=== PATIENT | female | born 1945 | race Caucasian/White ===

== ENCOUNTER 2018-02-26 11:43 | Inpatient (IN) | payer MEDICARE, OTHER ==
[2018-02-26] MEDS ORDERED: NS 0.9% 1000 ML* 2,000 ML IV ONE (11:59)
--- NOTE | 2018-02-26 12:07 | ED ---
Neurological HPI - HPI Summary HPI Summary: Time seen by provider: [12:00] The patient is a 72 y/o F presenting to [facility] with a chief complaint of confusion and difficulty with communication starting this morning at 10:00. Per daughter, the patient was normal last night, although she did have a sudden onset cold with a productive cough and chest congestion. This morning, the pt's daughter called her and the pt was unable to form thoughts, but she wasn't slurring her speech. The daughter called EMS, who arrived to the pt's home, where she lives with her , but EMS found that the patient was communicating correctly and did not have any significant neurological defects present at that time. She additionally has a fever of 103F and dizziness. She denies numbness and tingling. She has hx of Afib, which she takes Eloquis for. - History of Current Complaint Chief Complaint: EDAltMentalStatus Stated Complaint: SLURRING OF SPEECH,DIZZY, HARD TIME WITH MEMORY Time Seen by Provider: 02/26/18 11:55 Hx Obtained From: Patient Onset/Duration: Sudden Onset, Started minutes ago - this morning at 10:00, Resolved Timing: Sudden Onset Onset Severity: Moderate Current Severity: Mild Pain Scale Used: 0-10 Numeric Character: Dizzy Aggravating: Nothing Alleviating: Nothing Associated Signs and Symptoms: Positive: Confusion, Dizziness, Impaired Speech - difficulty with communication but not slurred speech. Negative: Numbness - or tingling - Allergy/Home Medications Allergies/Adverse Reactions: Allergies Allergy/AdvReac Type Severity Reaction Status Date / Time codeine Allergy Severe Palpitation Verified 02/26/18 14:07 s metoprolol Allergy Intermediate Anxiety Verified 02/26/18 14:07 Penicillins Allergy Intermediate Rash Verified 02/26/18 14:07 amlodipine Allergy Mild Coughing Verified 02/26/18 14:07 ramipril Allergy Mild Coughing Verified 02/26/18 14:07 [id number]-Swg-Ojv Reductase Allergy Mild Coughing Verified 02/26/18 14:07 Inhibitor GILDA Inhibitors Allergy Unknown Unknown Verified 02/26/18 14:07 Reaction Details azithromycin Allergy Unknown Unknown Verified 02/26/18 14:07 Reaction Details Home Medications: Home Medications Cholecalciferol (Vitamin D3) [Vitamin D3] 2,000 unit PO DAILY 02/26/18 [History Confirmed 02/26/18] Cyanocobalamin (Vitamin B-12) [Vitamin B-12] 500 mcg SL DAILY 02/26/18 [History Confirmed 02/26/18] Gabapentin [Neurontin] 100 mg PO BEDTIME 02/26/18 [History Confirmed 02/26/18] Tramadol HCl/Acetaminophen [Ultracet] 1 tab PO SEE INSTRUCTIONS PRN 02/26/18 [ History Confirmed 02/26/18] PMH/Surg Hx/FS Hx/Imm Hx Endocrine/Hematology History: Reports: Hx Anticoagulant Therapy - Eliquist 5 mg q daily, Hx Thyroid Disease - IN THE PAST-NO MEDS NOW Cardiovascular History: Reports: Hx Coronary Artery Disease - ON MED, Hx Hypercholesterolemia, Hx Hypertension - ON MED, Other Cardiovascular Problems/ Disorders - ATRIAL FIB-DR PARRISH Respiratory History: Reports: Hx Asthma - EXERCISE INDUCED, Hx Sleep Apnea, Other Respiratory Problems/Disorders - PNEUMONIA IN THE PAST GI History: Reports: Hx Hiatal Hernia - S/P SURGERY, Hx Ulcer - IN THE PAST Musculoskeletal History: Reports: Hx Arthritis, Hx Fibromyalgia, Hx Orthopedic Injury - (left) shoulder tendonitis Denies: Hx Osteoporosis Sensory History: Reports: Hx Cataracts, Hx Contacts or Glasses - GLASSES Denies: Hx Hearing Aid Opthamlomology History: Reports: Hx Cataracts, Hx Contacts or Glasses - GLASSES Neurological History: Reports: Hx Nerve Disease - FIBROMYALGIA, Other Neuro Impairments/Disorders - RESTLESS LEG SYNDROME - Cancer History Hx Chemotherapy: No Hx Radiation Therapy: No - Surgical History Surgery Procedure, Year, and Place: TONSILLECTOMY. 2 C-SECTIONS. HIATAL HERNIA [id number]. 2 HEART ABLASIONS-2003, 2007 [facility] Hx Anesthesia Reactions: No Infectious Disease History: Reports: Hx Shingles - Family History Known Family History: Positive: Hypertension - Social History Alcohol Use: None Substance Use Type: Reports: None Smoking Status (MU): Former Smoker Type: Cigarettes Amount Used/How Often: 1 PPD Length of Time of Smoking/Using Tobacco: 15 YEARS Have You Smoked in the Last Year: No Review of Systems Positive: Fever - 103F Positive: Cough - productive, Other - chest congestion Neurological: Other - confusion, difficulty with communication, dizziness Negative: Numbness - tingling, Slurred Speech All Other Systems Reviewed And Are Negative: Yes Physical Exam - Summary Physical Exam Summary: Appearance: The patient is well-nourished in no acute distress and in no acute pain. Skin: The skin is hot to touch and dry and skin color reflects adequate perfusion. HEENT: The head is normocephalic and atraumatic. The pupils are equal and reactive. The conjunctivae are clear and without drainage. Nares are patent and without drainage. Mouth reveals moist mucous membranes and the throat is without erythema and exudate. The external ears are intact. The ear canals are patent and without drainage. The tympanic membranes are intact. Neck: The neck is supple with full range of motion and non-tender. There are no carotid bruits. There is no neck vein distension. Respiratory: Chest is non-tender. Lungs present a wet cough and breath sounds are symmetrical and equal. Cardiovascular: Heart is tachycardic. There is no murmur or rub auscultated. There is no peripheral edema and pulses are symmetrical and equal. Abdomen: The abdomen is soft and non-tender. There are normal bowel sounds heard in all four quadrants and there is no organomegaly palpated. Musculoskeletal: There is no back tenderness noted. Extremities are non-tender with full range of motion. There is good capillary refill. There is no peripheral edema or calf tenderness elicited. Neurological: Patient is alert and oriented to person, place and time. The patient has symmetrical motor strength in all four extremities. Cranial nerves are grossly intact. Deep tendon reflexes are symmetrical and equal in all four extremities. GCS: 15. NIH: 0. Psychiatric: The patient has an appropriate affect and does not exhibit any anxiety or depression. Triage Information Reviewed: Yes Vital Signs Reviewed: Yes - [place] Coma Scale Best Eye Response: 4 - Spontaneous Best Motor Response: 6 - Obeys Commands Best Verbal Response: 5 - Oriented Coma Scale Total: 15 Diagnostics - Laboratory Result Diagrams: 02/26/18 12:14 02/26/18 12:14 Lab Statement: Any lab studies that have been ordered have been reviewed, and results considered in the medical decision making process. - Radiology CXR Radiology Interpretation Completed By: Radiologist Summary of Radiographic Findings: No evidence for acute disease. ED physician has reviewed this report. NIH Scale - NIH Scale Level of Consciousness: Alert/Keenly Responsive Ask Patient the Month and His/Her Age: Both Correct Ask Pt to Open/Close Eyes and Carpenter General/Release Non-Paretic Hand: Both Correctly Best Gaze (Only Horizontal Eye Movement): Normal Visual Field Testing: No Visual Loss Facial Paresis-Pt to Smile & Close Eyes or Grimace Symmetry: Normal/Symmetrical Motor Function - Right Arm: No Drift-Holds 10 Seconds Motor Function - Left Arm: No Drift-Holds 10 Seconds Motor Function - Right Leg: No Drift-Holds 10 Seconds Motor Function - Left Leg: No Drift-Holds 10 Seconds Limb Ataxia-Must be out of Proportion to Weakness Present: Absent Sensory (Use Pinprick to Test Arms/Legs/Trunk/Face): Normal Best Language (Describe Picture, Name Items): No Aphasia Dysarthria (Read Several Words): Normal Extinction and Inattention: No Abnormality Total Score: 0 Re-Evaluation - Re-Evaluation First Eval Re-Evaluation Time: 13:10 Change: Unchanged Comment: I spoke with the patient concerning admission [place] [facility] Course/Dx - Course Course Of Treatment: Ms. Pearce was brought into the emergency department by her family with a concern for confusion. She was noted to be tachycardic and febrile and considered to be septic on arrival. She was given IV fluids while labs were obtained. She did have a slightly low pulse ox on arrival and reported a cough for a couple of days. She had a wet sounding cough in the room. Chest x-ray was negative and influenza was positive. Because of her positive influenza and are consistent history and physical, antibiotics were withheld. Nevertheless fluids were given and because of her confusion the hospitalists were asked to admit her. - Diagnoses Provider Diagnoses: Sepsis, Influenza - Physician Notifications Discussed Care Of Patient With: Salvador Doe - hospitalist Time Discussed With Above Provider: 13:05 Instructed by Provider To: Admit As Observation - Dr. Doe accepts the patient for admission. - Critical Care Time Critical Care Time: 30-74 min Discharge - Sign-Out/Discharge Documenting (check all that apply): Patient Departure - Patient will be admitted [place] [facility] [place] further care by Dr. Doe. - Discharge Plan Condition: Stable Disposition: ADMITTED TO [facility] Referrals: Mona Reid MD [Primary Care Provider] - - Billing Disposition and Condition Condition: STABLE Disposition: Admitted to [facility] - Attestation Statements Document Initiated by Scribe: Yes Documenting Scribe: Ayse Myers Provider For Whom Scribe is Documenting (Include Credential): Dr. Herve Stein MD Scribe Attestation: I, Ayse Myers, scribed for Dr. Herve Stein MD on 02/26/18 at 1423. Scribe Documentation Reviewed: Yes Provider Attestation: The documentation as recorded by the Ayse aguayo accurately reflects the service I personally performed and the decisions made by me, Dr. Herve Stein MD Status of Josh Document: Viewed
[2018-02-26 12:32] LABS: Hematocrit 37 % (35-47); Hemoglobin 12.5 g/dl (12.0-16.0); Mean Corpuscular HGB Conc 34 g/dl (31-36); Mean Corpuscular Hemoglobin 30 pg (27-31); Mean Corpuscular Volume 89 fL (80-97); Mean Platelet Volume 8.4 fL (7.4-10.4); Platelet Count 211 10^3/ul (150-450); Red Blood Count 4.19 10^6/ul (4.00-5.40); Red Cell Distribution Width 14 % (10.5-15); White Blood Count 8.3 10^3/ul (3.5-10.8)
[2018-02-26 12:41] LABS: Activated Partial Thrombo Time 33.4 seconds (26.0-36.3); INR 1.18 (0.77-1.02)
[2018-02-26 12:51] LABS: Albumin 3.9 g/dL (3.2-5.2); Albumin/Globulin Ratio 1.6 (1-3); C Reactive Protein 50.39 mg/L (<8.01); EGFR Non-African American 54.3 (>60); Globulin 2.5 g/dL (2-4); Potassium 4.1 mmol/L (3.5-5.0); Total Bilirubin 0.8 mg/dL (0.2-1.0); Total Protein 6.4 g/dL (6.4-8.9)
[2018-02-26 13:00] LABS: ABS Basophils 0 10^3/ul (0-0.2); ABS Eosinophils 0 10^3/ul (0-0.6); ABS Lymphocytes 0.7 10^3/ul (1.0-4.8); ABS Monocytes 0.5 10^3/ul (0-0.8); ABS Neutrophils 7.1 10^3/ul (1.5-7.7); ABS Nucleated RBC 0 10^3/ul; Eosinophil % 0 %; Lymphocyte % 8.1 %; Nucleated Red Blood Cells % 0
[2018-02-26] MEDS ORDERED: Fluticasone NASAL SPRAY 50MCG* 16 gm SPRAY BTL BOTH NARES PRN (13:50)
[2018-02-26] MEDS ORDERED: Ondansetron ODT TAB* 4 MG SL PRN (13:53)
[2018-02-26] MEDS ORDERED: Acetaminophen TAB* 325 MG PO PRN (13:53)
[2018-02-26] MEDS ORDERED: Aspirin TAB* 325 MG PO ONE (14:01)
--- NOTE | 2018-02-26 15:19 | HP ---
CC: Dr. Reid* [facility] MEDICINE HISTORY AND PHYSICAL: DATE OF ADMISSION: 02/26/18 PRIMARY CARE PHYSICIAN: Dr. Reid. ATTENDING PHYSICIAN: Dr. Salvador Doe* (dictation provided by Viviana Puente NP). CHIEF COMPLAINT: Cough and confusion. HISTORY OF PRESENT ILLNESS: Ms. Pearce is a 72-year-old female with a past medical history of hypertension, hyperlipidemia, atrial fibrillation, obstructive sleep apnea with CPAP and chronic pain related to fibromyalgia, who presents today to the hospital with concern for cough and confusion. Ms. Pearce is here with her daughter, who provides some of the HPI as well. Per the report, Ms. Pearce was well on Irma; however, she was seen yesterday and noted to be congested with a frequent cough. The patient did not feel she had a fever, but did not take her temperature. Today, the patient was noted to be confused. The patient states, "I was just really tired," but the daughter states that she was very concerned because the patient could not remember words , she had difficulty with recall of recent events, she was unable to essentially even write her own name, and for this reason, she was brought to the emergency room for evaluation. She denies other complaint including chest pain, nausea, vomiting, diarrhea, or abdominal pain. In the emergency room, Ms. Pearce was confirmed to be flu positive. She does report having a flu shot back in November. She has no leukocytosis. Her temperature is 103.1 with a heart rate of about 120. She therefore meets sepsis criteria. Chest x-ray shows no pneumonia. She appears to be back to baseline in terms of mentation and has no overt neurological deficits. PAST MEDICAL HISTORY: 1. Hypertension. 2. Hyperlipidemia. 3. History of atrial fibrillation with ablation in 2003 and 2006. 4. Hypothyroidism, not currently on medication. 5. Restless legs syndrome. 6. Obstructive sleep apnea with use of CPAP at home. PAST SURGICAL HISTORY: History of Jennifer fundoplication in 2013. MEDICATIONS: 1. Fluticasone nasal spray 2 sprays both nares q.a.m. 2. Benzonatate cap 100 mg p.o. t.i.d. p.r.n. 3. Guaifenesin ER 600 mg p.o. b.i.d. p.r.n. 4. Asmanex 220 mcg metered-dose inhaler 1 puff inhaled daily p.r.n. 5. Losartan 50 mg p.o. b.i.d. 6. Apixaban 5 mg p.o. b.i.d. 7. Requip 1 mg at bedtime. 8. Vitamin B12 500 mcg sublingually daily. 9. Atenolol 50 mg 1 tab p.o. b.i.d. 10. Tramadol with acetaminophen 2 tabs p.o. t.i.d. 11. Rosuvastatin 10 mg 3 times a week. 12. Amiloride 5 mg p.o. q.a.m. 13. Gabapentin 100 mg at bedtime. 14. Cholecalciferol 2000 units p.o. daily. ALLERGIES: To PENICILLINS, CODEINE, METOPROLOL, AMLODIPINE, RAMIPRIL, STATINS, GILDA INHIBITORS, AZITHROMYCIN. FAMILY HISTORY: Per the report, mother had hypertension, hyperlipidemia and atrial fibrillation. Father had bowel obstruction. SOCIAL HISTORY: The patient is a former smoker, she quit in 1978 and has a 17- pack year smoking history. No alcohol or drug abuse. She states that her daughter, Billie, will be the healthcare proxy. REVIEW OF SYSTEMS: A 14-point review of systems was completed with Ms. Pearce and all those not mentioned above were negative. PHYSICAL EXAMINATION GENERAL: Ms. Pearce is sitting up in the bed. She appears to be in no acute distress. She has a frequent nonproductive cough. VITAL SIGNS: Temperature 99.8, was 103.1 on arrival; heart rate was 120, but is now 99; respiratory rate 30; O2 saturation 95% on room air; blood pressure 125/87. LUNGS: Have coarse rhonchi bilaterally. HEART: S1, S2. No murmur, rub, or gallop and regular. ABDOMEN: Soft, nontender. Bowel sounds positive x4. EXTREMITIES: No cyanosis or edema. NEURO: She is alert. She is oriented x3. She moves all extremities equally. There is no facial asymmetry or focal weakness. Extraocular movements are intact. SKIN: Intact. DIAGNOSTIC STUDIES/LAB DATA: WBC 8.3, hemoglobin 12.5, hematocrit 37, platelet count 211. INR 1.18. Sodium 132, potassium 4.1, chloride 99, serum bicarbonate 23, BUN 17, creatinine 1.00, glucose 122, lactic acid 1.2. CRP 50.39. Flu A is positive. Chest x-ray shows no acute intrathoracic process. ASSESSMENT: Ms. Pearce is a 72-year-old female with a past medical history of hypertension, hyperlipidemia, atrial fibrillation, obstructive sleep apnea with CPAP use, and fibromyalgia, who presents today to the hospital with concern for sudden onset of congestion, cough and confusion, found to be flu swab positive, but also with concern for possible transient ischemic attack. Our plans are for observation in the hospital for the followin. Sepsis secondary to flu. The patient will be treated with Tamiflu at 75 mg p.o. b.i.d. She has received intravenous fluids in the emergency department and will continue with that at 100 mL per hour. Her lactic acid is normal. Blood cultures have been sent. She will have cough medications available p.r.n. and she can have oxygen if needed, though she is not hypoxic at this time. 2. Altered mental status. The patient is described to have had profound symptoms of confusion prior to her arrival despite the fact that her temperature was only 99.1. I am suspicious that her symptoms of confusion were related to development of the flu, but could be consistent with a transient ischemic attack including dysphasia and difficulty even writing her name. I think she deserves workup for a transient ischemic attack, and I have ordered MRI. If the MRI is negative, I will not continue further workup as the patient has had an echo outpatient. She will be on the telemetry unit. I will give her an aspirin as well. 3. Hypertension. Plan to hold losartan during acute illness. 4. History of atrial fibrillation. Plan to continue Eliquis and atenolol. 5. Chronic pain. Continue home medications. 6. Code status: Full code. TIME SPENT: Approximately 60 minutes was spent on the admission of this patient , more than half the time spent with the patient at the bedside reviewing the events leading up to this hospitalization, performing the physical examination, and reviewing my plan of care. VIVIANA PUENTE NP [id number]/[facility] #: [id number] DANNIELLE
[2018-02-26] MEDS: NS 0.9% 1000 ML* 1,000 ML IV SCH (15:48)
[2018-02-26] MEDS: Oseltamivir CAP* 75 MG CAP PO SCH ×2 (15:48→21:20)
[2018-02-26] MEDS: Benzonatate CAP* 100 MG PO PRN (15:49)
[2018-02-26] MEDS: traMADol TAB* 50 MG PO SCH ×2 (15:49→21:16)
[2018-02-26 16:08] LABS: Urine Appearance Clear; Urine Bacteria 1+ (Absent); Urine Bilirubin Negative (Negative); Urine Blood 1+ (Negative); Urine Color Yellow; Urine Glucose Negative (Negative); Urine Ketones Negative (Negative); Urine Nitrite Negative (Negative); Urine Protein Negative (Negative); Urine Red Blood Cell 1+(3-5/hpf) (Absent); Urine Specific Gravity 1.012 (1.010-1.030); Urine Urobilinogen Negative (Negative); Urine White Blood Cell Trace(0-5/hpf) (Absent)
[2018-02-26] MEDS ORDERED: Iodixanol* (CONTRAST) 320 MG/ML 100 ML SDV IV ONE (17:34)
[2018-02-26] MEDS: Gabapentin CAP(*) 100 MG PO SCH (21:16)
[2018-02-26] MEDS: Atenolol TAB* 50 MG PO SCH (21:17)
[2018-02-26] MEDS: rOPINIRole TAB* 1 MG PO SCH ×2 (21:17→21:23)
[2018-02-26] MEDS: Apixaban* 5 MG TAB PO SCH (21:21)
[2018-02-27] MEDS: rOPINIRole TAB* 1 MG PO PRN ×2 (00:20→20:34)
[2018-02-27] MEDS: NS 0.9% 1000 ML* 1,000 ML IV SCH (03:44)
[2018-02-27 06:10] LABS: HDL Cholesterol 45.4 mg/dL
[2018-02-27] MEDS: Benzonatate CAP* 100 MG PO PRN (08:25)
[2018-02-27] MEDS: guaiFENesin ER TAB 600 MG PO PRN (08:25)
[2018-02-27] MEDS: traMADol TAB* 50 MG PO PRN ×2 (08:25→13:35)
[2018-02-27] MEDS: Apixaban* 5 MG TAB PO SCH ×2 (08:25→20:34)
[2018-02-27] MEDS: Atenolol TAB* 50 MG PO SCH ×2 (08:26→20:34)
[2018-02-27] MEDS: Oseltamivir CAP* 75 MG CAP PO SCH ×2 (08:26→20:34)
--- NOTE | 2018-02-27 14:55 | PN ---
Subjective Date of Service: 02/27/18 Interval History: Improvement in sob.headache present Objective Active Medications: Acetaminophen (Tylenol Tab*) 650 mg PO Q6H PRN PRN Reason: pain/fever Apixaban (Eliquis*) 5 mg PO BID [facility] Last Admin: 02/27/18 08:25 Dose: 5 mg Atenolol (Tenormin Tab*) 50 mg PO BID [facility] Last Admin: 02/27/18 08:26 Dose: 50 mg Atorvastatin Calcium (Lipitor*) 20 mg PO 1700 [facility] Benzonatate (Tessalon Cap*) 100 mg PO TID PRN PRN Reason: COUGH Last Admin: 02/27/18 08:25 Dose: 100 mg Fluticasone Propionate (Flonase Nasal Crossnore 50mcg*) 2 spray BOTH NARES QAM PRN PRN Reason: Allergy Symptoms Gabapentin (Neurontin Cap(*)) 100 mg PO BEDTIME [facility] Last Admin: 02/26/18 21:16 Dose: Not Given Guaifenesin (Mucinex*) 600 mg PO BID PRN PRN Reason: COUGH Last Admin: 02/27/18 08:25 Dose: 600 mg Ondansetron HCl (Zofran Odt Tab*) 4 mg SL Q6H PRN PRN Reason: NAUSEA/VOMITING Oseltamivir Phosphate (Tamiflu Cap*) 75 mg PO BID [facility] Stop: 03/02/18 21:01 Last Admin: 02/27/18 08:26 Dose: 75 mg Ropinirole HCl (Requip Tab*) 1 mg PO BEDTIME PRN PRN Reason: LEG CRAMPS Last Admin: 02/27/18 00:20 Dose: 1 mg Tramadol HCl (Ultram*) 100 mg PO TID PRN PRN Reason: PAIN Last Admin: 02/27/18 13:35 Dose: 100 mg Vital Signs - 8 hr 02/27/18 02/27/18 02/27/18 08:04 08:24 08:25 Temperature 98.2 F Pulse Rate 88 Respiratory 16 20 20 Rate Blood Pressure 127/65 (mmHg) O2 Sat by Pulse 98 Oximetry 02/27/18 02/27/18 02/27/18 10:29 12:11 13:35 Temperature 99.2 F Pulse Rate 91 Respiratory 18 20 18 Rate Blood Pressure 141/58 (mmHg) O2 Sat by Pulse 98 Oximetry Oxygen Devices in Use Now: None Eyes: No Scleral Icterus Ears/Nose/Mouth/Throat: NL Teeth, Lips, Gums Neck: NL Appearance and Movements; NL JVP Respiratory: Symmetrical Chest Expansion and Respiratory Effort Cardiovascular: NL Sounds; No Murmurs; No JVD Abdominal: NL Sounds; No Tenderness; No Distention Extremities: No Edema Skin: No Rash or Ulcers Neurological: Alert and Oriented x 3, - - No focal deficits.Able to move her head and neck.No neck stiffness or pain Result Diagrams: 02/26/18 12:14 02/26/18 12:14 Microbiology and Other Data: Microbiology 02/26/18 12:14 Aerobic Blood Culture - Preliminary Blood Venous No Growth Day 1 Anaerobic Blood Culture - Preliminary No Growth Day 1 02/26/18 12:16 Aerobic Blood Culture - Preliminary Blood Venous No Growth Day 1 Anaerobic Blood Culture - Preliminary No Growth Day 1 02/26/18 15:58 Urine Culture - Final Urine 02/27/18 10:15 Gram Stain - Final Sputum Expectorated 02/26/18 12:17 Influenza Types A,B Antigen - Final Nasal Specimen received for Influenza A/B Molecular testing Assess/Plan/Problems-Billing Assessment: - Patient Problems (1) Influenza Current Visit: Yes Status: Acute Code(s): J11.1 - FLU DUE TO UNIDENTIFIED INFLUENZA VIRUS W OTH RESP MANIFEST SNOMED Code(s): 3334314 Comment: On Tamiflu Supportive measures Improving (2) Pneumonia Current Visit: Yes Status: Acute Code(s): J18.9 - PNEUMONIA, UNSPECIFIED ORGANISM SNOMED Code(s): 572711392 Comment: Ongoing sob and sputum with green/yellow sputum will add Vanco 1 dose for coverage of superimposed elizabeth infection with gram pos organisms.Pt has a PCN allergy Repeat CXR in am and decide if she needs further CAP coverage (3) Altered mental status Current Visit: Yes Status: Acute Code(s): R41.82 - ALTERED MENTAL STATUS, UNSPECIFIED SNOMED Code(s): 236801240 Comment: Improved Alert orinted answering all q appropriately MRI and CTA reviewed.No acute stroke or acute changes.Discussed MRI results with pt's daughter in detail.No clinical evidence of meningitis/encephalitis and will follow neuro status closely.Also on Tamiflu for viral coverage and vanco for coverage for now for Pcn mainly but will offer coverage for meningitis.has pcn allergy and [poss cross reactivity with ceftriaxone.Discussed with radiology.They do not think poss acute meningitis / encephalitis on imaging as well. Poss small vessel disease and if any concern for demyelinating disease based on symptoms as a OP, can repeat MRI for better understanding.
[2018-02-27] MEDS ORDERED: Vancomycin(*) 1,000 MG in NS 0.9% 250 ML* 250 ML IVPB ONE (15:30)
[2018-02-27] MEDS: Atorvastatin* 20 MG TAB PO SCH (17:02)
[2018-02-27] MEDS: Gabapentin CAP(*) 100 MG PO SCH (20:39)
--- NOTE | 2018-02-27 20:43 | CONS ---
CC: Dr. Nika Barney; Dr. Mona Reid* CONSULTATION REPORT: DATE OF CONSULT: 02/27/18 PATIENT OF: Dr. Shaver. HISTORY OF PRESENT ILLNESS: A 72-year-old right-handed woman, who has a history of atrial fibrillation, hyperlipidemia, hypertension, obstructive sleep apnea with nasal CPAP, who had a fever and then yesterday had an episode of difficulty speaking with confusion. Instead of saying the word pills for instance over the phone, she said light to her daughter and she was having other word-finding problems and had difficulty finishing her sentences. She was also somewhat confused. She could, according to people who were with her, lift both hands and had no numbness, weakness, or visual symptoms. No headache. She was brought to the emergency room for evaluation and her speech problems cleared within 15 minutes or so and was even better towards the end of the conversation with her daughter when the daughter called back after about 10 or 15 minutes. She was found to be flu positive. Of note, she had missed at least 2 doses of her Eliquis because she was sick with the flu and did not feel well. PAST MEDICAL HISTORY: She has a history of hypertension, hyperlipidemia, atrial fibrillation with ablation in 2003 and 2006, but is on Eliquis. She has hypothyroidism, not on medication. She has restless legs syndrome, obstructive sleep apnea with nasal CPAP. PAST SURGICAL HISTORY: She is status post Jennifer fundoplication, 2013. MEDICATIONS: At home include: 1. Fluticasone nasal spray 2 sprays both nares each day. 2. Calciferol 2000 units daily. 3. Gabapentin 100 mg at night. 4. Amiloride 5 mg in the morning. 5. Rosuvastatin 10 mg 3 times a day. 6. Tramadol 2 tabs t.i.d. 7. Atenolol 1 tab b.i.d. 8. B12 500 mcg sublingual daily. 9. Requip 1 mg daily. 10. Eliquis 5 mg b.i.d. 11. Losartan 50 mg b.i.d. 12. Asmanex inhaler 220 mcg p.r.n. 13. Guaifenesin 600 b.i.d. p.r.n. ALLERGIES: She is allergic to PENICILLIN; CODEINE; METOPROLOL; AMLODIPINE; RAMIPRIL; apparently STATINS, although she is on rosuvastatin, GILDA INHIBITORS, and AZITHROMYCIN. FAMILY HISTORY: Mother had hypertension, hyperlipidemia, and atrial fibrillation. Father had bowel obstruction. SOCIAL HISTORY: She is a former smoker, quit in 1978. She does not drink or use drugs. Her daughter, Billie, who I spoke to at length over the phone is the healthcare proxy. REVIEW OF SYSTEMS: Negative in all 14 spheres other than HPI. PHYSICAL EXAMINATION: Temperature 97.1, pulse 80, respirations 16, blood pressure 143/67. She is alert and oriented with normal speech and comprehension. Cranial nerves II through XII were normal. Fundi showed sharp discs bilaterally. Motor exam revealed normal tone, strength, coordination. Negative pronator drift. Sensation intact to light touch. Reflexes were 1 and equal. Toes were downgoing. Chest: Clear. Cardiovascular: Regular rate and rhythm. Abdomen: Soft. Neck was supple. DIAGNOSTIC STUDIES/LAB DATA: MRI scan: I reviewed the films. It showed diffuse white matter disease, but no acute stroke. Her CTA showed plaque, but no significant dissection or other abnormalities. Labs include an INR of 1.18, PTT of 33.4. Normal CBC. LDL of 60, triglycerides 78. Normal CMP other than a C-reactive protein of 50.39, glucose of 122, creatinine of 1, sodium of 132. She was influenza B positive. UA was negative. IMPRESSION AND PLAN: Josy had a brief episode of what sounds like aphasia with word-finding difficulty, choppy sentences and some confusion. This quickly passed. Most likely, this was secondary to her atrial fibrillation with a history of missing at least 2 doses of Eliquis. I reviewed these issues with Josy and her daughter and also discussed issues of getting into the hospital on an emergent basis calling the ambulance directly in the event of a possible stroke. She would not be if she is on Eliquis a candidate for tPA, but would be a possible candidate for clot retrieval. I have no further recommendations at this point. Thank you for sharing her case. [id number]/[facility] #: [id number] DANNIELLE
[2018-02-28] MEDS: traMADol TAB* 50 MG PO PRN ×3 (05:00→20:15)
[2018-02-28 06:27] LABS: ABS Basophils 0 10^3/ul (0-0.2); ABS Eosinophils 0 10^3/ul (0-0.6); ABS Lymphocytes 1.8 10^3/ul (1.0-4.8); ABS Monocytes 0.6 10^3/ul (0-0.8); ABS Neutrophils 4.7 10^3/ul (1.5-7.7); ABS Nucleated RBC 0 10^3/ul; Eosinophil % 0.3 %; Hematocrit 32 % (35-47); Hemoglobin 11.1 g/dl (12.0-16.0); Lymphocyte % 25.2 %; Mean Corpuscular HGB Conc 35 g/dl (31-36); Mean Corpuscular Hemoglobin 31 pg (27-31); Mean Corpuscular Volume 89 fL (80-97); Nucleated Red Blood Cells % 0; Platelet Count 170 10^3/ul (150-450); Red Blood Count 3.62 10^6/ul (4.00-5.40); Red Cell Distribution Width 14 % (10.5-15); White Blood Count 7.2 10^3/ul (3.5-10.8)
[2018-02-28 06:42] LABS: BUN/Creatinine Ratio 13.6 (8-20); C Reactive Protein 113.55 mg/L (<8.01); Calcium 8.6 mg/dL (8.6-10.3); EGFR Non-African American 69.3 (>60); Potassium 3.9 mmol/L (3.5-5.0)
[2018-02-28] MEDS: Apixaban* 5 MG TAB PO SCH ×2 (08:21→20:13)
[2018-02-28] MEDS: guaiFENesin ER TAB 600 MG PO PRN (08:21)
[2018-02-28] MEDS: Oseltamivir CAP* 75 MG CAP PO SCH ×2 (08:21→20:13)
[2018-02-28] MEDS: Benzonatate CAP* 100 MG PO PRN (08:21)
[2018-02-28] MEDS: Atenolol TAB* 50 MG PO SCH ×2 (08:21→20:12)
[2018-02-28] MEDS: Levofloxacin 500 MG IVPREMIX(* 500 MG/100 ML BAG IVPB SCH (14:16)
--- NOTE | 2018-02-28 16:34 | PN ---
Subjective Date of Service: 02/28/18 Interval History: Reports improvement in breathing and feeling better than admission.But reports feeling very tired Objective Active Medications: Acetaminophen (Tylenol Tab*) 650 mg PO Q6H PRN PRN Reason: pain/fever Apixaban (Eliquis*) 5 mg PO BID [facility] Last Admin: 02/28/18 08:21 Dose: 5 mg Atenolol (Tenormin Tab*) 50 mg PO BID [facility] Last Admin: 02/28/18 08:21 Dose: 50 mg Atorvastatin Calcium (Lipitor*) 20 mg PO 1700 [facility] Last Admin: 02/27/18 17:02 Dose: Not Given Benzonatate (Tessalon Cap*) 100 mg PO TID PRN PRN Reason: COUGH Last Admin: 02/28/18 08:21 Dose: 100 mg Fluticasone Propionate (Flonase Nasal [place] 50mcg*) 2 spray BOTH NARES QAM PRN PRN Reason: Allergy Symptoms Gabapentin (Neurontin Cap(*)) 100 mg PO BEDTIME [facility] Last Admin: 02/27/18 20:39 Dose: Not Given Guaifenesin (Mucinex*) 600 mg PO BID PRN PRN Reason: COUGH Last Admin: 02/28/18 08:21 Dose: 600 mg Levofloxacin/Dextrose (Levaquin 500 Mg Ivpremix(*)) 500 mg in 100 mls @ 100 mls /hr IVPB Q24H [facility] Last Admin: 02/28/18 14:16 Dose: 100 mls/hr Oseltamivir Phosphate (Tamiflu Cap*) 75 mg PO BID [facility] Stop: 03/02/18 21:01 Last Admin: 02/28/18 08:21 Dose: 75 mg Ropinirole HCl (Requip Tab*) 1 mg PO BEDTIME PRN PRN Reason: LEG CRAMPS Last Admin: 02/27/18 20:34 Dose: 1 mg Tramadol HCl (Ultram*) 100 mg PO TID PRN PRN Reason: PAIN Last Admin: 02/28/18 11:12 Dose: 100 mg Vital Signs - 8 hr 02/28/18 02/28/18 02/28/18 11:12 11:42 14:16 Temperature 98.3 F Pulse Rate 88 Respiratory 20 16 18 Rate Blood Pressure 145/91 (mmHg) O2 Sat by Pulse 99 Oximetry 02/28/18 15:24 Temperature 96.9 F Pulse Rate 93 Respiratory 16 Rate Blood Pressure 117/61 (mmHg) O2 Sat by Pulse 96 Oximetry Oxygen Devices in Use Now: None Eyes: No Scleral Icterus Ears/Nose/Mouth/Throat: NL Teeth, Lips, Gums Neck: NL Appearance and Movements; NL JVP Respiratory: Symmetrical Chest Expansion and Respiratory Effort, Clear to Auscultation Cardiovascular: NL Sounds; No Murmurs; No JVD Abdominal: NL Sounds; No Tenderness; No Distention Extremities: No Edema Skin: No Rash or Ulcers Neurological: Alert and Oriented x 3 Result Diagrams: 02/28/18 05:41 02/28/18 05:40 Microbiology and Other Data: Microbiology 02/26/18 12:14 Aerobic Blood Culture - Preliminary Blood Venous No Growth Day 1 Anaerobic Blood Culture - Preliminary No Growth Day 1 02/26/18 12:16 Aerobic Blood Culture - Preliminary Blood Venous No Growth Day 1 Anaerobic Blood Culture - Preliminary No Growth Day 1 02/26/18 15:58 Urine Culture - Final Urine 02/27/18 10:15 Gram Stain - Final Sputum Expectorated 02/26/18 12:17 Influenza Types A,B Antigen - Final Nasal Specimen received for Influenza A/B Molecular testing Assess/Plan/Problems-Billing Assessment: - Patient Problems (1) Influenza Current Visit: Yes Status: Acute Code(s): J11.1 - FLU DUE TO UNIDENTIFIED INFLUENZA VIRUS W OTH RESP MANIFEST SNOMED Code(s): 3868991 Comment: On Tamiflu Supportive measures Improving (2) Pneumonia Current Visit: Yes Status: Acute Code(s): J18.9 - PNEUMONIA, UNSPECIFIED ORGANISM SNOMED Code(s): 041797902 Comment: Ongoing sob and sputum with green/yellow sputum Recd Vanco 1 dose for coverage of superimposed elizabeth infection with gram pos organisms.Pt has a PCN allergy CXR repeated this am and does show Pneumonia now.Will add Levaquin 500 mg IV daily to cover for superimposed bacterial pneumonia as pt improving and to provide gram pos and atypcal coverage.Pt can possibly be discharged on PO Levaquin if needed (3) Altered mental status Current Visit: Yes Status: Acute Code(s): R41.82 - ALTERED MENTAL STATUS, UNSPECIFIED SNOMED Code(s): 573339807 Comment: Improved Alert orinted answering all q appropriately MRI and CTA reviewed.No acute stroke or acute changes.Discussed MRI results with pt's daughter in detail.No clinical evidence of meningitis/encephalitis and will follow neuro status closely..Discussed with radiology.They do not think poss acute meningitis /encephalitis on imaging as well. Poss small vessel disease and if any concern for demyelinating disease based on symptoms as a OP, can repeat MRI for better understanding. Seen by Neurology,Dr Finnegan and possible TIA.She has a h/o A fib and missed a couple of doses of Eliquis. 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 Pt f/u with Dr Barney Cardiology as an OP
[2018-02-28] MEDS: Atorvastatin* 20 MG TAB PO SCH ×2 (17:07→17:09)
[2018-02-28] MEDS: Gabapentin CAP(*) 100 MG PO SCH (21:02)
[2018-02-28] MEDS: rOPINIRole TAB* 1 MG PO PRN (22:37)
[2018-03-01 05:42] LABS: ABS Basophils 0 10^3/ul (0-0.2); ABS Eosinophils 0.1 10^3/ul (0-0.6); ABS Lymphocytes 2.3 10^3/ul (1.0-4.8); ABS Monocytes 0.5 10^3/ul (0-0.8); ABS Neutrophils 3.1 10^3/ul (1.5-7.7); ABS Nucleated RBC 0 10^3/ul; Hematocrit 35 % (35-47); Hemoglobin 11.6 g/dl (12.0-16.0); Lymphocyte % 38.3 %; Mean Corpuscular HGB Conc 34 g/dl (31-36); Mean Corpuscular Hemoglobin 30 pg (27-31); Mean Corpuscular Volume 89 fL (80-97); Mean Platelet Volume 8.5 fL (7.4-10.4); Nucleated Red Blood Cells % 0.1; Platelet Count 216 10^3/ul (150-450); Red Blood Count 3.88 10^6/ul (4.00-5.40); Red Cell Distribution Width 14 % (10.5-15)
[2018-03-01 06:09] LABS: BUN/Creatinine Ratio 17.2 (8-20); CRP High Sensitivity 78.99 mg/L (<2.00); Calcium 8.8 mg/dL (8.6-10.3); EGFR Non-African American 63.8 (>60); Potassium 3.8 mmol/L (3.5-5.0)
[2018-03-01] MEDS: guaiFENesin ER TAB 600 MG PO PRN ×2 (07:49→19:35)
[2018-03-01] MEDS: Apixaban* 5 MG TAB PO SCH ×2 (07:49→19:35)
[2018-03-01] MEDS: traMADol TAB* 50 MG PO PRN ×3 (07:49→19:36)
[2018-03-01] MEDS: Oseltamivir CAP* 75 MG CAP PO SCH ×2 (07:49→19:36)
[2018-03-01] MEDS: Atenolol TAB* 50 MG PO SCH ×2 (07:50→19:36)
[2018-03-01] MEDS ORDERED: aMILoride TAB* 5 MG PO SCH (09:00)
[2018-03-01] MEDS ORDERED: Cholecalciferol TAB* 1000 UNITS PO SCH (09:00)
[2018-03-01] MEDS ORDERED: Losartan TAB* 25 MG PO SCH (09:00)
--- NOTE | 2018-03-01 11:39 | PN ---
Subjective Date of Service: 03/01/18 Interval History: Feeling better but exhausted. Walked around the hallway twice. Still coughing with yellow sputum. Objective Active Medications: Acetaminophen (Tylenol Tab*) 650 mg PO Q6H PRN PRN Reason: pain/fever Amiloride HCl (Midamor Tab*) 5 mg PO DAILY [facility] Last Admin: 03/01/18 07:48 Dose: 5 mg Apixaban (Eliquis*) 5 mg PO BID [facility] Last Admin: 03/01/18 07:49 Dose: 5 mg Atenolol (Tenormin Tab*) 50 mg PO BID [facility] Last Admin: 03/01/18 07:50 Dose: 50 mg Atorvastatin Calcium (Lipitor*) 20 mg PO 1700 [facility] Last Admin: 02/28/18 17:09 Dose: Not Given Benzonatate (Tessalon Cap*) 100 mg PO TID PRN PRN Reason: COUGH Last Admin: 02/28/18 08:21 Dose: 100 mg Cholecalciferol (Vitamin D Tab*) 4,000 units PO DAILY [facility] Last Admin: 03/01/18 07:50 Dose: 4,000 units Fluticasone Propionate (Flonase Nasal [place] 50mcg*) 2 spray BOTH NARES QAM PRN PRN Reason: Allergy Symptoms Gabapentin (Neurontin Cap(*)) 100 mg PO BEDTIME [facility] Last Admin: 02/28/18 21:02 Dose: Not Given Guaifenesin (Mucinex*) 600 mg PO BID PRN PRN Reason: COUGH Last Admin: 03/01/18 07:49 Dose: 600 mg Levofloxacin/Dextrose (Levaquin 500 Mg Ivpremix(*)) 500 mg in 100 mls @ 100 mls /hr IVPB Q24H [facility] Last Admin: 02/28/18 14:16 Dose: 100 mls/hr Losartan Potassium (Cozaar Tab*) 50 mg PO DAILY [facility] Last Admin: 03/01/18 07:49 Dose: 50 mg Oseltamivir Phosphate (Tamiflu Cap*) 75 mg PO BID [facility] Stop: 03/02/18 21:01 Last Admin: 03/01/18 07:49 Dose: 75 mg Ropinirole HCl (Requip Tab*) 1 mg PO BEDTIME PRN PRN Reason: LEG CRAMPS Last Admin: 02/28/18 22:37 Dose: 1 mg Tramadol HCl (Ultram*) 100 mg PO TID PRN PRN Reason: PAIN Last Admin: 03/01/18 07:49 Dose: 100 mg Vital Signs - 8 hr 03/01/18 03/01/18 03/01/18 04:56 07:27 07:45 Temperature 98.4 F 98.4 F Pulse Rate 57 79 Respiratory 20 20 18 Rate Blood Pressure 130/64 141/73 (mmHg) O2 Sat by Pulse 97 98 Oximetry 03/01/18 03/01/18 07:49 11:00 Temperature 97.6 F Pulse Rate 81 Respiratory 18 18 Rate Blood Pressure 131/70 (mmHg) O2 Sat by Pulse 99 Oximetry Oxygen Devices in Use Now: None Appearance: alert, nontoxic Eyes: No Scleral Icterus Ears/Nose/Mouth/Throat: NL Teeth, Lips, Gums Neck: NL Appearance and Movements; NL JVP Respiratory: Symmetrical Chest Expansion and Respiratory Effort, Clear to Auscultation Cardiovascular: NL Sounds; No Murmurs; No JVD, - - irregular Abdominal: NL Sounds; No Tenderness; No Distention Lymphatic: No Cervical Adenopathy Extremities: No Edema Skin: No Rash or Ulcers Neurological: Alert and Oriented x 3 Result Diagrams: 03/01/18 05:14 03/01/18 05:14 Microbiology and Other Data: Microbiology 02/26/18 12:14 Aerobic Blood Culture - Preliminary Blood Venous No Growth Day 1 Anaerobic Blood Culture - Preliminary No Growth Day 1 02/26/18 12:16 Aerobic Blood Culture - Preliminary Blood Venous No Growth Day 1 Anaerobic Blood Culture - Preliminary No Growth Day 1 02/26/18 15:58 Urine Culture - Final Urine 02/27/18 10:15 Gram Stain - Final Sputum Expectorated 02/26/18 12:17 Influenza Types A,B Antigen - Final Nasal Specimen received for Influenza A/B Molecular testing Assess/Plan/Problems-Billing Assessment: Ms. Pearce is a 72 year old female with history of atrial fibrillation who presented with word finding difficulty and was found to have the flu - Patient Problems (1) Influenza Current Visit: Yes Status: Acute Code(s): J11.1 - FLU DUE TO UNIDENTIFIED INFLUENZA VIRUS W OTH RESP MANIFEST SNOMED Code(s): 8001851 Comment: On Tamiflu Supportive measures Improving (2) Atrial fibrillation Current Visit: Yes Status: Acute Code(s): I48.91 - UNSPECIFIED ATRIAL FIBRILLATION SNOMED Code(s): 76906735 Comment: rate controlled continue eliquis (3) Pneumonia Current Visit: Yes Status: Acute Code(s): J18.9 - PNEUMONIA, UNSPECIFIED ORGANISM SNOMED Code(s): 001284148 Comment: levaquin started yesterday (4) TIA (transient ischemic attack) Current Visit: Yes Status: Acute Code(s): G45.9 - TRANSIENT CEREBRAL ISCHEMIC ATTACK, UNSPECIFIED SNOMED Code(s): 060364071 Comment: I agree with Neurology in thinking that initial symptoms most c/w TIA in the setting of A fib and missing a couple of doses of Eliquis when she was confused and sick with Influenza No need for Aspirin per Neuro. Continue Eliquis. 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 Pt f/u with Dr Barney Cardiology as an OP
[2018-03-01] MEDS: Levofloxacin 500 MG IVPREMIX(* 500 MG/100 ML BAG IVPB SCH (13:13)
[2018-03-01 15:59] VITALS: BP 126/69
[2018-03-01] MEDS: Atorvastatin* 20 MG TAB PO SCH ×2 (18:07→19:36)
== END 2018-03-01 19:50 | disposition home or self-care (01) | DRG 194 ==
LOC: ED 11:43 → MEDTELE 13:46 → OBSVTOIN 02-27 11:34
PROVIDERS: ADMIT Internal Medicine; ATTEND Internal Medicine
DX: J11.00 Influenza due to unidentified influenza virus with unspecified type of pneumonia (principal); G45.9 Transient cerebral ischemic attack, unspecified; I48.91 Unspecified atrial fibrillation; E78.5 Hyperlipidemia, unspecified; I10 Essential (primary) hypertension; G47.33 Obstructive sleep apnea (adult) (pediatric); E03.9 Hypothyroidism, unspecified; G25.81 Restless legs syndrome; M79.7 Fibromyalgia; G89.29 Other chronic pain; Z79.01 Long term (current) use of anticoagulants; Z79.899 Other long term (current) drug therapy; Z88.1 Allergy status to other antibiotic agents; Z88.5 Allergy status to narcotic agent; Z88.0 Allergy status to penicillin; Z88.8 Allergy status to other drugs, medicaments and biological substances; Z82.49 Family history of ischemic heart disease and other diseases of the circulatory system; Z87.891 Personal history of nicotine dependence
CPT/HCPCS: 36415; 70496; 70498; 70551; 71045; 71046; 80048; 80053; 80061; 81003; 81015; 82550; 83605; 84484; 85025; 85610; 85730; 86140; 86141; 87040; 87070; 87077; 87086; 87205; 94660; 99284; A9270-GY; G0378; J1956; J3370; Q9967

== ENCOUNTER 2018-08-18 11:27 | Emergency (ER) | payer MEDICARE, OTHER ==
[2018-08-18 11:54] VITALS: BP 148/98
--- NOTE | 2018-08-18 13:11 | UC ---
Shoulder Pain HPI - HPI Summary HPI Summary: Pt presents with c/o right shoulder pain after slipping on stair in pool at local health facility. Pt state that the hand rail was under her right armpit and her right shoulder was "madina upward" . Now has pain with ROM in right shoulder, upper arm and upper back. - History of Current Complaint Chief Complaint: UCUpperExtremity Stated Complaint: ARM/SHOULDER INJURY Time Seen by Provider: 08/18/18 12:46 Hx Obtained From: Patient ?: No Onset/Duration: Sudden Onset, Still Present Timing: Constant Severity Initially: Moderate Severity Currently: Moderate Location Of Pain: Is Discrete @ - right shoulder Pain Intensity: 6 Character: Dull, Aching, Stiffness Aggravating Factor(s): Movement Alleviating Factor(s): Rest Associated Signs And Symptoms: Positive: Weakness Related History: Dominant Hand Right - Risk Factors Non-Orthopedic Risk Factor: Negative DVT Risk Factors: Negative Septic Arthritis Risk Factor: Negative - Allergies/Home Medications Allergies/Adverse Reactions: Allergies Allergy/AdvReac Type Severity Reaction Status Date / Time codeine Allergy Severe Palpitation Verified 08/18/18 11:55 s metoprolol Allergy Intermediate Anxiety Verified 08/18/18 11:55 Penicillins Allergy Intermediate Rash Verified 08/18/18 11:55 amlodipine Allergy Mild Coughing Verified 08/18/18 11:55 ramipril Allergy Mild Coughing Verified 08/18/18 11:55 [id number]-[id number] Reductase Allergy Mild Coughing Verified 08/18/18 11:55 Inhibitor GILDA Inhibitors Allergy Unknown Unknown Verified 08/18/18 11:55 Reaction Details azithromycin Allergy Unknown Unknown Verified 08/18/18 11:55 Reaction Details pregabalin [From Lyrica] Allergy Unknown Verified 08/18/18 11:55 Reaction Details Home Medications: Home Medications Fexofenadine (NF) [Carmen (NF)] 1 spray INH ONCE PRN 08/18/18 [History Confirmed 08/18/18] Tramadol HCl [Tramadol HCl ER] 100 mg PO DAILY 08/18/18 [History Confirmed 08/18] PMH/Surg Hx/FS Hx/Imm Hx Previously Healthy: Yes Other History Of: Anticoagulant Therapy - Eliquist 5 mg q daily - Surgical History Surgical History: Yes Surgery Procedure, Year, and Place: TONSILLECTOMY. 2 C-SECTIONS. 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 RIGHT EYE CATARACT. 2 HEART ABLASIONS-2003, 2007 [facility] - Family History Known Family History: Positive: Hypertension - Social History Occupation: Retired Lives: With Family Alcohol Use: None Substance Use Type: Prescribed Smoking Status (MU): Former Smoker Type: Cigarettes Amount Used/How Often: 1 PPD Length of Time of Smoking/Using Tobacco: 15 YEARS Have You Smoked in the Last Year: No When Did the Patient Quit Smoking/Using Tobacco: 1977 - Immunization History Most Recent Influenza Vaccination: fall 2017 Most Recent Pneumonia Vaccination: received Review of Systems All Other Systems Reviewed And Are Negative: Yes Constitutional: Positive: Negative Skin: Positive: Negative Eyes: Positive: Negative ENT: Positive: Negative Respiratory: Positive: Negative Cardiovascular: Positive: Negative Gastrointestinal: Positive: Negative Genitourinary: Positive: Negative Motor: Positive: Decreased ROM - right shoulder, Weakness - right upper extremity Neurovascular: Positive: Negative Musculoskeletal: Positive: Arthralgia, Decreased ROM, Myalgia Neurological: Positive: Negative Psychological: Positive: Negative Is Patient Immunocompromised?: No Physical Exam Triage Information Reviewed: Yes Appearance: Pain Distress - with movement Vital Signs: Initial Vital Signs Temp 96 F 08/18/18 11:49 Pulse 84 08/18/18 11:49 Resp 18 08/18/18 11:49 BP 148/98 08/18/18 11:49 Pulse Ox 95 08/18/18 11:49 Vital Signs Reviewed: Yes Eye Exam: Normal ENT Exam: Normal Dental Exam: Normal Neck exam: Normal Respiratory: Positive: No respiratory distress Musculoskeletal: Positive: Strength Limited @ - right shoulder, ROM Limited @ - right shoulder and upper extremity Neurological Exam: Normal Psychological Exam: Normal Skin Exam: Normal Diagnostics - Radiology No standard instances Radiology Interpretation Completed By: Radiologist - IMPRESSION: OSTEOPENIA. OSTEOARTHRITIS. NO ACUTE OSSEOUS INJURY. IF SYMPTOMS PERSIST, RECOMMEND REPEAT IMAGING. Shoulder Course/Dx - Differential Dx/Diagnosis Differential Diagnosis/HQI/PQRI: Dislocation, Fracture (Closed), Sprain, Strain Provider Diagnosis: Right shoulder strain Discharge - Sign-Out/Discharge Documenting (check all that apply): Patient Departure All imaging exams completed and their final reports reviewed: Yes - Discharge Plan Condition: Stable Disposition: HOME Patient Education Materials: Shoulder Sprain (ED), Shoulder Pain (ED) Referrals: Cristina Paulino MD [Medical Doctor] - If Needed Mona Reid MD [Primary Care Provider] - If Needed - Billing Disposition and Condition Condition: STABLE Disposition: Home
== END 2018-08-18 13:24 | disposition home or self-care (01) ==
LOC: UCEAST 11:27
DX: S46.911A Strain of unspecified muscle, fascia and tendon at shoulder and upper arm level, right arm, initial encounter (principal); W01.0XXA Fall on same level from slipping, tripping and stumbling without subsequent striking against object, initial encounter; Y93.11 Activity, swimming; Y92.838 Other recreation area as the place of occurrence of the external cause; Y99.8 Other external cause status; Z88.5 Allergy status to narcotic agent; Z88.0 Allergy status to penicillin; Z79.01 Long term (current) use of anticoagulants; Z87.891 Personal history of nicotine dependence
CPT/HCPCS: 99212; G0463

== ENCOUNTER 2020-02-26 18:03 | Observation (INO) ==
[2020-02-26] MEDS ORDERED: HYDROcodone/ACETAMIN 5/325 mg TAB PO ONE (19:01)
[2020-02-26 22:55] LABS: ABS Lymphocytes 1.3 10^3/ul (1.0-4.8); ABS Monocytes 0.4 10^3/ul (0-0.8); ABS Neutrophils 11.6 10^3/ul (1.5-7.7); Eosinophil % 0.1 %; Hematocrit 41 % (35-47); Hemoglobin 13.6 g/dL (12.0-16.0); Lymphocyte % 9.5 %; Mean Corpuscular HGB Conc 33 g/dL (31-36); Mean Corpuscular Hemoglobin 30 pg (27-31); Mean Corpuscular Volume 92 fL (80-97); Mean Platelet Volume 8.6 fL (7.4-10.4); Platelet Count 286 10^3/uL (150-450); Red Blood Count 4.52 10^6 /uL (3.70-4.87); Red Cell Distribution Width 14 % (10-15); White Blood Count 13.3 10^3/uL (3.5-10.8)
[2020-02-26] MEDS ORDERED: Diltiazem IV push/loading dose 5 MG/ML 5 ML vial (25 mg) IV SLOW PU ONE (23:08)
[2020-02-26 23:16] LABS: ALT 15 U/L (7-52); AST 21 U/L (13-39); Albumin 4.6 g/dL (3.2-5.2); Albumin/Globulin Ratio 1.6 (1-3); Alkaline Phosphatase 74 U/L (34-104); Anion Gap 10 mmol/L (2-11); BUN/Creatinine Ratio 20.5 (8-20); Blood Urea Nitrogen 27 mg/dL (6-24); CO2 Carbon Dioxide 23 mmol/L (22-32); Calcium 10.2 mg/dL (8.6-10.3); Chloride 102 mmol/L (101-111); EGFR African American 47.5 (>60); EGFR Non-African American 39.2 (>60); Globulin 2.9 g/dL (2-4); Glucose 136 mg/dL (70-100); Potassium 4.8 mmol/L (3.5-5.0); Sodium 135 mmol/L (135-145); Total Protein 7.5 g/dL (6.4-8.9)
[2020-02-26 23:20] LABS: Troponin I 0.21 ng/mL (<0.03)
[2020-02-26] MEDS ORDERED: Ondansetron 4 mg VIAL 2 MG/ML 2 ml VIAL IV ONE (23:38)
[2020-02-27] MEDS ORDERED: Fluticasone NASAL SPRAY 50MCG 16 gm SPRAY BTL BOTH NARES PRN (00:06)
[2020-02-27] MEDS ORDERED: NS 0.9% 1000 ml BAG 1,000 ML IV SCH (00:45)
[2020-02-27] MEDS: HYDROcodone/ACETAMIN 5/325 mg TAB PO PRN ×4 (01:59→20:45)
[2020-02-27 02:35] LABS: Troponin I 0.43 ng/mL (<0.03)
[2020-02-27] MEDS ORDERED: Metoprolol Tartrate 5 mg VIAL 5 ml VIAL (1 mg/ml) IV ONE (02:40)
[2020-02-27 05:58] LABS: Troponin I 0.67 ng/mL (<0.03)
[2020-02-27] MEDS: Diltiazem IV push/loading dose 5 MG/ML 5 ML vial (25 mg) IV SLOW PU ONE ×2 (06:02→10:11)
[2020-02-27 06:49] LABS: ABS Basophils 0.1 10^3/ul (0-0.2); ABS Lymphocytes 2.6 10^3/ul (1.0-4.8); ABS Monocytes 0.8 10^3/ul (0-0.8); ABS Neutrophils 7.1 10^3/ul (1.5-7.7); Eosinophil % 0.1 %; Hematocrit 35 % (35-47); Hemoglobin 11.7 g/dL (12.0-16.0); Lymphocyte % 24.2 %; Mean Corpuscular HGB Conc 33 g/dL (31-36); Mean Corpuscular Hemoglobin 31 pg (27-31); Mean Corpuscular Volume 92 fL (80-97); Mean Platelet Volume 8.8 fL (7.4-10.4); Platelet Count 256 10^3/uL (150-450); Red Blood Count 3.84 10^6 /uL (3.70-4.87); Red Cell Distribution Width 14 % (10-15); White Blood Count 10.6 10^3/uL (3.5-10.8)
[2020-02-27] MEDS: Heparin DRIP 25,000 UNITS BAG 25,000 UNITS/500 ML BAG IV SCH (07:26)
[2020-02-27] MEDS: Heparin 5000 UNITS/ML 1 mL VIAL IV SCH ×2 (07:27→22:02)
[2020-02-27 08:26] LABS: Troponin I 0.7 ng/mL (<0.03)
[2020-02-27] MEDS: CMCS: Rosuvastatin 10 mg TAB (NF) PO SCH (15:07)
[2020-02-27] MEDS: Cholecalciferol (VIT D3) 1,000 unit TAB PO SCH (15:07)
[2020-02-27] MEDS: Ondansetron 4 mg VIAL 2 MG/ML 2 ml VIAL IV PRN (19:56)
[2020-02-27] MEDS ORDERED: methylPREDNISolone ACETATE 40 mg/ml 1 ml VIAL **not IV INTRAARTIC ONE (22:15)
[2020-02-27] MEDS ORDERED: Lidocaine 1% MPF 5 ML VIAL ONE (22:15)
[2020-02-28] MEDS: HYDROcodone/ACETAMIN 5/325 mg TAB PO PRN ×2 (02:59→16:58)
[2020-02-28 04:48] LABS: ABS Basophils 0.1 10^3/ul (0-0.2); ABS Eosinophils 0.1 10^3/ul (0-0.6); ABS Lymphocytes 2.5 10^3/ul (1.0-4.8); ABS Monocytes 0.8 10^3/ul (0-0.8); ABS Neutrophils 7.6 10^3/ul (1.5-7.7); Eosinophil % 0.5 %; Hematocrit 35 % (35-47); Hemoglobin 11.8 g/dL (12.0-16.0); Lymphocyte % 22.4 %; Mean Corpuscular HGB Conc 33 g/dL (31-36); Mean Corpuscular Hemoglobin 31 pg (27-31); Mean Corpuscular Volume 92 fL (80-97); Mean Platelet Volume 8.6 fL (7.4-10.4); Platelet Count 229 10^3/uL (150-450); Red Blood Count 3.85 10^6 /uL (3.70-4.87); Red Cell Distribution Width 14 % (10-15)
[2020-02-28] MEDS: Ondansetron 4 mg VIAL 2 MG/ML 2 ml VIAL IV PRN ×3 (07:55→21:22)
[2020-02-28] MEDS ORDERED: Perflutren Lipid Microsphere 3 ML VIAL ONE (07:58)
[2020-02-28] MEDS: Heparin DRIP 25,000 UNITS BAG 25,000 UNITS/500 ML BAG IV SCH (09:37)
[2020-02-28] MEDS ORDERED: Regadenoson 0.4 MG/5 ML SYRINGE ONE (09:50)
[2020-02-28] MEDS ORDERED: Aminophylline 25 MG/ML VIAL ONE (09:50)
[2020-02-28] MEDS: Heparin 5000 UNITS/ML 1 mL VIAL IV SCH (14:04)
[2020-02-28] MEDS: Cholecalciferol (VIT D3) 1,000 unit TAB PO SCH (15:42)
[2020-02-28] MEDS: Polyethylene Glycol 3350 17 GM PACKET PO SCH (15:42)
[2020-02-28] MEDS: CMCS: Rosuvastatin 10 mg TAB (NF) PO SCH (15:45)
[2020-02-28] MEDS ORDERED: Heparin 5000 UNITS/ML 1 mL VIAL SUBCUT SCH (22:00)
[2020-02-29] MEDS: HYDROcodone/ACETAMIN 5/325 mg TAB PO PRN (00:58)
[2020-02-29 07:00] LABS: ABS Lymphocytes 0.9 10^3/ul (1.0-4.8); ABS Monocytes 0.1 10^3/ul (0-0.8); ABS Neutrophils 9.7 10^3/ul (1.5-7.7); Hematocrit 35 % (35-47); Hemoglobin 11.8 g/dL (12.0-16.0); Lymphocyte % 8.8 %; Mean Corpuscular HGB Conc 34 g/dL (31-36); Mean Corpuscular Hemoglobin 31 pg (27-31); Mean Corpuscular Volume 91 fL (80-97); Mean Platelet Volume 8.8 fL (7.4-10.4); Platelet Count 244 10^3/uL (150-450); Red Blood Count 3.84 10^6 /uL (3.70-4.87); Red Cell Distribution Width 14 % (10-15); White Blood Count 10.8 10^3/uL (3.5-10.8)
[2020-02-29 07:18] LABS: EGFR African American 61.8 (>60); EGFR Non-African American 51.1 (>60)
[2020-02-29] MEDS: Polyethylene Glycol 3350 17 GM PACKET PO SCH (09:23)
[2020-02-29] MEDS: Cholecalciferol (VIT D3) 1,000 unit TAB PO SCH (09:24)
[2020-02-29] MEDS: CMCS: Rosuvastatin 10 mg TAB (NF) PO SCH (09:24)
[2020-02-29 14:32] VITALS: BP 144/72
[2020-02-29] MEDS ORDERED: Ondansetron 4 mg VIAL 2 MG/ML 2 ml VIAL IV ONE (14:36)
== END 2020-02-29 15:53 | disposition home or self-care (01) ==
LOC: MEDTELE 18:03 → ED 18:03
PROVIDERS: ADMIT Student in an Organized Health Care Education/Training Program; ATTEND Internal Medicine

== ENCOUNTER 2023-03-10 10:05 | Inpatient (IN) ==
[2023-03-10 11:52] LABS: ABS Basophils 0.1 10^3/uL (0.0-0.1); ABS Eosinophils 0.2 10^3/uL (0.0-0.5); ABS Lymphocytes 1.4 10^3/uL (1.0-4.8); ABS Monocytes 0.7 10^3/uL (0.0-0.9); ABS Neutrophils 5.4 10^3/uL (1.5-7.6); Eosinophil % 2.2 %; Lymphocyte % 18.5 %; Mean Corpuscular Hemoglobin 29.9 pg (27-33); Mean Corpuscular Hgb Conc 33.4 g/dL (31-36); Mean Corpuscular Volume 89.6 fL (80-97); Platelet Count 242 10^3/uL (150-450); Red Blood Count 4.36 10^6/uL (3.63-4.92); Red Cell Distribution Width 15.4 % (12-17); White Blood Count 7.8 10^3/uL (3.8-11.8)
[2023-03-10 11:57] LABS: Urine Appearance Clear; Urine Bilirubin Negative (Negative); Urine Blood 1+ (Negative); Urine Color Yellow; Urine Glucose 3+(>=500 mg/dL) (Negative); Urine Ketones Negative (Negative); Urine Nitrite Negative (Negative); Urine Protein Negative (Negative); Urine Specific Gravity 1.018 (1.002-1.030); Urine Urobilinogen Negative (Negative)
[2023-03-10 12:00] LABS: Urine Bacteria Absent (Absent); Urine Red Blood Cell Trace(0-2/hpf) (Absent); Urine Squamous Epithelial Cell Present (Absent); Urine White Blood Cell Trace(0-5/hpf) (Absent)
[2023-03-10 12:15] LABS: Urine Benzodiazepine Screen None Detected (None Detect); Urine Cannabinoids Screen None Detected (None Detect); Urine Opiates Screen None Detected (None Detect)
[2023-03-10 12:17] LABS: High Sens Troponin Baseline 6 pg/mL (<15)
[2023-03-10 12:22] LABS: ALT 21 U/L (7-52); Albumin 4.1 g/dL (3.2-5.2); Albumin/Globulin Ratio 1.6 (1-3); Alkaline Phosphatase 66 U/L (35-149); Anion Gap 8 mmol/L (2-16); Blood Urea Nitrogen 21 mg/dL (6-24); CO2 Carbon Dioxide 25 mmol/L (22-32); Calcium 9.2 mg/dL (8.6-10.3); Chloride 107 mmol/L (101-111); Creatinine, Serum 0.77 mg/dL (0.51-0.95); Globulin 2.5 g/dL (2-4); Glucose 83 mg/dL (70-100); Sodium 140 mmol/L (135-145); Total Bilirubin 0.8 mg/dL (0.2-1.0); Total Protein 6.6 g/dL (6.4-8.9); eGFR CKD-EPI 78.9 (>60)
[2023-03-10 12:48] LABS: Alcohol, S < 13 mg/dL (<13)
[2023-03-10 13:01] LABS: TSH Ultra Thyroid Stim Horm 1.88 mcIU/mL (0.34-5.60)
[2023-03-10] MEDS: Iohexol 350 (CONTRAST) 500 ML MDV IV ONE (13:07)
[2023-03-10 14:59] LABS: Magnesium 2.1 mg/dL (1.9-2.7); Potassium Redraw 3.8 mmol/L (3.5-5.0)
[2023-03-10] MEDS ORDERED: Lorazepam PYXIS KEY PRN ×2 (16:20→18:10)
[2023-03-10] MEDS: LORazepam 2 mg VIAL 1 ml IV PUSH ONE ×2 (17:34→18:46)
[2023-03-10 22:54] LABS: PCO2 Arterial 33 mmHg (35-45); PO2 Arterial 100 mmHg (80-100)
[2023-03-11 12:24] LABS: ABS Basophils 0.1 10^3/uL (0.0-0.1); ABS Eosinophils 0.2 10^3/uL (0.0-0.5); ABS Lymphocytes 1.3 10^3/uL (1.0-4.8); ABS Monocytes 0.7 10^3/uL (0.0-0.9); ABS Neutrophils 5.8 10^3/uL (1.5-7.6); Eosinophil % 2.2 %; Hematocrit 41.7 % (35-45); Hemoglobin 13.9 g/dL (11.5-14.3); Lymphocyte % 16.5 %; Mean Corpuscular Hemoglobin 29.8 pg (27-33); Mean Corpuscular Hgb Conc 33.2 g/dL (31-36); Mean Corpuscular Volume 89.8 fL (80-97); Mean Platelet Volume 7.9 fL (7.5-11.2); Platelet Count 241 10^3/uL (150-450); Red Blood Count 4.65 10^6/uL (3.63-4.92); Red Cell Distribution Width 15.1 % (12-17)
[2023-03-11] MEDS ORDERED: Polyethyl Glycol/Propylene Gly OPHTH.SOLN BOTH EYES PRN (12:36)
[2023-03-11 12:38] LABS: Anion Gap 8 mmol/L (2-16); Blood Urea Nitrogen 16 mg/dL (6-24); C Reactive Protein 14.17 mg/L (<8.01); CO2 Carbon Dioxide 24 mmol/L (22-32); Calcium 9.3 mg/dL (8.6-10.3); Chloride 106 mmol/L (101-111); Glucose 122 mg/dL (70-100); Magnesium 2.1 mg/dL (1.9-2.7); Sodium 138 mmol/L (135-145); eGFR CKD-EPI 75.4 (>60)
[2023-03-11] MEDS ORDERED: Naloxone 0.4 mg VIAL 0.4 mg/ml 1 ml VIAL IV PRN (14:18)
[2023-03-12] MEDS: Lactated Ringers 1000 ml BAG 1,000 ML IV SCH (06:05)
[2023-03-12 07:10] LABS: ABS Basophils 0.1 10^3/uL (0.0-0.1); ABS Eosinophils 0.2 10^3/uL (0.0-0.5); ABS Lymphocytes 1.6 10^3/uL (1.0-4.8); ABS Monocytes 0.8 10^3/uL (0.0-0.9); ABS Neutrophils 5.4 10^3/uL (1.5-7.6); ABS Nucleated RBC 0.01 10^3/ul; Eosinophil % 2.6 %; Hematocrit 40.2 % (35-45); Hemoglobin 13.4 g/dL (11.5-14.3); Lymphocyte % 20.3 %; Mean Corpuscular Hemoglobin 29.8 pg (27-33); Mean Corpuscular Hgb Conc 33.3 g/dL (31-36); Mean Corpuscular Volume 89.5 fL (80-97); Mean Platelet Volume 8.4 fL (7.5-11.2); Nucleated Red Blood Cells % 0.1 %/100WBC (0.0-0.8); Platelet Count 245 10^3/uL (150-450); Red Blood Count 4.49 10^6/uL (3.63-4.92); Red Cell Distribution Width 15.3 % (12-17); White Blood Count 8.1 10^3/uL (3.8-11.8)
[2023-03-12 07:27] LABS: Creatinine, Serum 0.89 mg/dL (0.51-0.95); Magnesium 1.9 mg/dL (1.9-2.7); Potassium 3.8 mmol/L (3.5-5.0); eGFR CKD-EPI 66.3 (>60)
[2023-03-12] MEDS ORDERED: fentaNYL 100 mcg/2 ml 50 MCG/ML VIAL IV ONE (07:58)
[2023-03-12] MEDS ORDERED: Propofol 10 MG/ML 20 ML BTL IV ONE (10:13)
[2023-03-12] MEDS ORDERED: Lidocaine 2% PF 5 ML VIAL IV ONE (10:13)
[2023-03-12] MEDS: Buffered Lidocaine 1% SYRIN 1 ml INTRADERM ONE (12:58)
[2023-03-12] MEDS: Famotidine IV 10 MG/ML 2 ml VIAL (20 mg) IV ONE (12:59)
[2023-03-12] MEDS: Potassium Chlor 20 meq TAB.ER PO ONE (13:54)
[2023-03-12] MEDS: Magnesium Sulfate IV 1GM/100ML 1 GM/100 ML BAG IV ONE (13:59)
[2023-03-12] MEDS: Heparin 5000 UNITS/ML 1 mL VIAL IV SCH (15:14)
[2023-03-12] MEDS: Heparin DRIP 25,000 UNITS BAG 25,000 UNITS/250 ML BAG IV SCH (15:16)
[2023-03-13 06:54] LABS: ABS Basophils 0.1 10^3/uL (0.0-0.1); ABS Eosinophils 0.2 10^3/uL (0.0-0.5); ABS Lymphocytes 1.6 10^3/uL (1.0-4.8); ABS Monocytes 0.6 10^3/uL (0.0-0.9); ABS Neutrophils 4.6 10^3/uL (1.5-7.6); Eosinophil % 3.3 %; Hemoglobin 13.4 g/dL (11.5-14.3); Lymphocyte % 22.3 %; Mean Corpuscular Hemoglobin 29.9 pg (27-33); Mean Corpuscular Hgb Conc 33.5 g/dL (31-36); Mean Corpuscular Volume 89.4 fL (80-97); Mean Platelet Volume 8.2 fL (7.5-11.2); Platelet Count 232 10^3/uL (150-450); Red Blood Count 4.47 10^6/uL (3.63-4.92); Red Cell Distribution Width 15.7 % (12-17); White Blood Count 7.1 10^3/uL (3.8-11.8)
[2023-03-13 07:12] LABS: Calcium 9.1 mg/dL (8.6-10.3); Creatinine, Serum 0.79 mg/dL (0.51-0.95); Magnesium 2.2 mg/dL (1.9-2.7); Potassium 4.1 mmol/L (3.5-5.0); eGFR CKD-EPI 76.5 (>60)
[2023-03-14] MEDS ORDERED: Lactated Ringers 1000 ml BAG 1,000 ML IV SCH (06:00)
[2023-03-14 06:33] LABS: ABS Basophils 0.1 10^3/uL (0.0-0.1); ABS Eosinophils 0.3 10^3/uL (0.0-0.5); ABS Lymphocytes 1.6 10^3/uL (1.0-4.8); ABS Monocytes 0.6 10^3/uL (0.0-0.9); ABS Neutrophils 3.7 10^3/uL (1.5-7.6); ABS Nucleated RBC 0.01 10^3/ul; Eosinophil % 4.7 %; Hematocrit 40.2 % (35-45); Hemoglobin 13.4 g/dL (11.5-14.3); Lymphocyte % 25.5 %; Mean Corpuscular Hgb Conc 33.4 g/dL (31-36); Mean Corpuscular Volume 89.9 fL (80-97); Mean Platelet Volume 8.3 fL (7.5-11.2); Nucleated Red Blood Cells % 0.2 %/100WBC (0.0-0.8); Platelet Count 227 10^3/uL (150-450); Red Blood Count 4.47 10^6/uL (3.63-4.92); Red Cell Distribution Width 15.8 % (12-17); White Blood Count 6.2 10^3/uL (3.8-11.8)
[2023-03-14 06:55] LABS: Creatinine, Serum 0.68 mg/dL (0.51-0.95); eGFR CKD-EPI 89.1 (>60)
[2023-03-14] MEDS: Buffered Lidocaine 1% SYRIN 1 ml INTRADERM ONE (07:54)
[2023-03-15 06:50] LABS: ABS Basophils 0.1 10^3/uL (0.0-0.1); ABS Eosinophils 0.3 10^3/uL (0.0-0.5); ABS Lymphocytes 2.4 10^3/uL (1.0-4.8); ABS Monocytes 0.7 10^3/uL (0.0-0.9); ABS Neutrophils 4.9 10^3/uL (1.5-7.6); Eosinophil % 3.1 %; Hemoglobin 13.8 g/dL (11.5-14.3); Lymphocyte % 28.3 %; Mean Corpuscular Hemoglobin 29.6 pg (27-33); Mean Corpuscular Hgb Conc 32.9 g/dL (31-36); Mean Platelet Volume 8.3 fL (7.5-11.2); Platelet Count 249 10^3/uL (150-450); Red Blood Count 4.67 10^6/uL (3.63-4.92); Red Cell Distribution Width 15.5 % (12-17); White Blood Count 8.3 10^3/uL (3.8-11.8)
[2023-03-15 07:29] LABS: Calcium 9.5 mg/dL (8.6-10.3); Creatinine, Serum 0.95 mg/dL (0.51-0.95); Magnesium 2.1 mg/dL (1.9-2.7); Potassium 4.5 mmol/L (3.5-5.0); eGFR CKD-EPI 61.3 (>60)
[2023-03-16] MEDS: Lactated Ringers 1000 ml BAG 1,000 ML IV SCH (05:47)
[2023-03-16] MEDS: Buffered Lidocaine 1% SYRIN 1 ml INTRADERM ONE (07:03)
[2023-03-16 08:10] LABS: ABS Basophils 0.1 10^3/uL (0.0-0.1); ABS Eosinophils 0.3 10^3/uL (0.0-0.5); ABS Lymphocytes 1.9 10^3/uL (1.0-4.8); ABS Monocytes 0.7 10^3/uL (0.0-0.9); ABS Neutrophils 4.4 10^3/uL (1.5-7.6); ABS Nucleated RBC 0.01 10^3/ul; Calcium 9.7 mg/dL (8.6-10.3); Creatinine, Serum 0.85 mg/dL (0.51-0.95); Hematocrit 43.8 % (35-45); Hemoglobin 14.2 g/dL (11.5-14.3); Lymphocyte % 26.2 %; Magnesium 2.1 mg/dL (1.9-2.7); Mean Corpuscular Hemoglobin 29.3 pg (27-33); Mean Corpuscular Hgb Conc 32.5 g/dL (31-36); Mean Corpuscular Volume 90.1 fL (80-97); Mean Platelet Volume 8.8 fL (7.5-11.2); Nucleated Red Blood Cells % 0.1 %/100WBC (0.0-0.8); Phosphorus 4.1 mg/dL (2.5-5.0); Platelet Count 277 10^3/uL (150-450); Potassium 4.7 mmol/L (3.5-5.0); Red Blood Count 4.86 10^6/uL (3.63-4.92); Red Cell Distribution Width 15.8 % (12-17); White Blood Count 7.4 10^3/uL (3.8-11.8); eGFR CKD-EPI 70.1 (>60)
[2023-03-16] MEDS ORDERED: Sterile Water for Inj 20 ML ONE (09:55)
[2023-03-16] MEDS ORDERED: Dexamethasone IV 4 MG/ML VIAL 1 ml VIAL ONE (09:55)
[2023-03-16] MEDS ORDERED: Phenylephrine IV 10 MG/ML 1 ml VIAL ONE (09:55)
[2023-03-16] MEDS ORDERED: Ondansetron 4 mg VIAL 2 MG/ML 2 ml VIAL ONE (09:55)
[2023-03-16] MEDS ORDERED: Lidocaine 2% PF 5 ML VIAL ONE (09:55)
[2023-03-16] MEDS ORDERED: Propofol 1,000 MG/100 ML BTL ONE (09:55)
[2023-03-16] MEDS ORDERED: Phenylephrine 40 mcg/mL 10mL (400mcg) SYRINGE ONE (09:55)
[2023-03-16] MEDS ORDERED: Midazolam 2 mg/2 ml VIAL 1 mg/ml 2 ml VIAL (2 mg) ONE (10:35)
[2023-03-16] MEDS ORDERED: fentaNYL 100 mcg/2 ml 50 MCG/ML VIAL ONE (10:35)
[2023-03-16] MEDS ORDERED: fentaNYL 100 mcg/2 ml 50 MCG/ML VIAL IV PRN (11:09)
[2023-03-16] MEDS ORDERED: Ondansetron 4 mg VIAL 2 MG/ML 2 ml VIAL IV PRN (11:09)
[2023-03-16] MEDS ORDERED: Naloxone 0.4 mg VIAL 0.4 mg/ml 1 ml VIAL IV PRN (11:09)
[2023-03-16] MEDS ORDERED: Etomidate 40 mg/20 ml (2 MG/ML) 20 ml VIAL (40 mg) ONE (12:00)
[2023-03-16] MEDS ORDERED: Lidocaine 1% VIAL 10 MG/ML 30 ML VIAL ONE (12:00)
[2023-03-16] MEDS ORDERED: Propofol 10 MG/ML 20 ML BTL ONE (12:00)
[2023-03-16] MEDS: Clindamycin 900 MG/50 **NS BAG 900 MG/50 ML BAG IV ONE (12:00)
[2023-03-16] MEDS: Carbidopa/Levodop 25/100 MG TAB PO ONE (17:17)
[2023-03-16] MEDS: Ferric Gluconate IV 250 MG in NS 0.9% 250 ml 200 ML IVPB SCH (17:32)
[2023-03-16] MEDS: Carbidopa/Levodop 25/100 MG TAB PO PRN (22:36)
[2023-03-17 07:03] LABS: ABS Basophils 0.2 10^3/uL (0.0-0.1); ABS Lymphocytes 1.6 10^3/uL (1.0-4.8); ABS Monocytes 0.6 10^3/uL (0.0-0.9); ABS Neutrophils 8.8 10^3/uL (1.5-7.6); ABS Nucleated RBC 0.01 10^3/ul; Hematocrit 41.8 % (35-45); Hemoglobin 13.9 g/dL (11.5-14.3); Lymphocyte % 14.3 %; Mean Corpuscular Hemoglobin 29.6 pg (27-33); Mean Corpuscular Hgb Conc 33.2 g/dL (31-36); Mean Corpuscular Volume 89.1 fL (80-97); Mean Platelet Volume 8.8 fL (7.5-11.2); Platelet Count 271 10^3/uL (150-450); Red Blood Count 4.69 10^6/uL (3.63-4.92); Red Cell Distribution Width 15.5 % (12-17); White Blood Count 11.1 10^3/uL (3.8-11.8)
[2023-03-17 07:17] LABS: Magnesium 2.1 mg/dL (1.9-2.7); Phosphorus 4.3 mg/dL (2.5-5.0)
[2023-03-17 07:49] LABS: Calcium 9.6 mg/dL (8.6-10.3); Creatinine, Serum 0.94 mg/dL (0.51-0.95); Potassium 4.5 mmol/L (3.5-5.0); eGFR CKD-EPI 62.1 (>60)
[2023-03-18 07:24] LABS: Creatinine, Serum 0.91 mg/dL (0.51-0.95); eGFR CKD-EPI 64.6 (>60)
[2023-03-19] MEDS: Carbidopa/Levodop 25/100 MG TAB PO PRN (00:54)
[2023-03-19 06:13] LABS: ABS Basophils 0.1 10^3/uL (0.0-0.1); ABS Eosinophils 0.2 10^3/uL (0.0-0.5); ABS Lymphocytes 2.2 10^3/uL (1.0-4.8); ABS Monocytes 0.8 10^3/uL (0.0-0.9); ABS Neutrophils 4.9 10^3/uL (1.5-7.6); ABS Nucleated RBC 0.01 10^3/ul; Hematocrit 41.6 % (35-45); Hemoglobin 13.9 g/dL (11.5-14.3); Lymphocyte % 26.9 %; Mean Corpuscular Hgb Conc 33.3 g/dL (31-36); Mean Platelet Volume 8.4 fL (7.5-11.2); Nucleated Red Blood Cells % 0.1 %/100WBC (0.0-0.8); Platelet Count 242 10^3/uL (150-450); Red Blood Count 4.63 10^6/uL (3.63-4.92); Red Cell Distribution Width 15.6 % (12-17); White Blood Count 8.1 10^3/uL (3.8-11.8)
[2023-03-19 06:32] LABS: Calcium 9.4 mg/dL (8.6-10.3); Creatinine, Serum 0.93 mg/dL (0.51-0.95); Potassium 4.2 mmol/L (3.5-5.0); eGFR CKD-EPI 62.9 (>60)
[2023-03-19] MEDS: Calamine LOTION BTL TOPICAL PRN (19:13)
[2023-03-20] MEDS ORDERED: Carbidopa/Levodop 25/100 MG TAB PO PRN (17:42)
[2023-03-20] MEDS: Metoprolol Tartrate 5 mg VIAL 5 ml VIAL (1 mg/ml) IV ONE (20:45)
[2023-03-21] MEDS: Cholecalciferol (VIT D3) 1,000 unit TAB PO SCH (09:17)
[2023-03-21] MEDS: [UNRECOGNIZED DRUG - OTHER] PO SCH (09:22)
[2023-03-21 13:33] LABS: ABS Basophils 0.1 10^3/uL (0.0-0.1); ABS Eosinophils 0.2 10^3/uL (0.0-0.5); ABS Monocytes 0.8 10^3/uL (0.0-0.9); ABS Neutrophils 5.7 10^3/uL (1.5-7.6); ABS Nucleated RBC 0.01 10^3/ul; Eosinophil % 2.6 %; Hemoglobin 13.6 g/dL (11.5-14.3); Lymphocyte % 22.8 %; Mean Corpuscular Hemoglobin 30.2 pg (27-33); Mean Corpuscular Hgb Conc 33.1 g/dL (31-36); Mean Corpuscular Volume 91.2 fL (80-97); Mean Platelet Volume 8.4 fL (7.5-11.2); Nucleated Red Blood Cells % 0.1 %/100WBC (0.0-0.8); Platelet Count 258 10^3/uL (150-450); Red Cell Distribution Width 16.1 % (12-17); White Blood Count 8.8 10^3/uL (3.8-11.8)
[2023-03-21 13:47] LABS: Calcium 9.2 mg/dL (8.6-10.3); Creatinine, Serum 0.9 mg/dL (0.51-0.95); Potassium 4.1 mmol/L (3.5-5.0); eGFR CKD-EPI 65.4 (>60)
[2023-03-21 14:55] LABS: % Iron Saturation 20 % (15-55); .Transferrin 230 mg/dL (203-362); Iron 65 ug/dL (50-212); Total Iron Binding Capacity 322 mcg/dL (250-450); Unsaturated Iron Binding 257 ug/dL
[2023-03-21 15:00] LABS: Uric Acid 5.8 mg/dL (2.3-6.6)
[2023-03-21] MEDS: Iron Sucrose 200 MG in NS 0.9% 100 ml BAG 100 ML IVPB SCH (16:06)
[2023-03-21 16:55] LABS: Calcium (PTH Intact) 9.4 mg/dL (8.6-10.3)
[2023-03-23 14:26] VITALS: BP 118/71
== END 2023-03-23 15:10 | disposition home or self-care (01) | DRG 243 ==
LOC: EDHOLD 10:05 → ED 10:05 → SUATTDRO 22:11 → MEDTELE 03-11 03:46 → SUATTDRO 03-12 13:53
PROVIDERS: ADMIT Student in an Organized Health Care Education/Training Program; ATTEND Hospitalist
PROC: O.ANMRI (2023-03-12 10:30)